=== PATIENT | female | born 2000 ===

== ENCOUNTER 2024-04-10 06:30 | Day surgery (SDC) | payer BC, SELFPAY ==
[2024-04-10] VITALS (7 sets, daily range): BP systolic 5–123; BP diastolic 56–79; BMI 25.3
[2024-04-10] MEDS: TYLENOL 1000 MG PO (12:10)
[2024-04-10] MEDS: NORMOSOL-R/PLASMALYTE-A 1000 IV (12:11)
[2024-04-10] MEDS: SUBLIMAZE 25 MCG IV (14:40)
[2024-04-10] MEDS: ZOFRAN 4 MG IV (15:13)
== END 2024-04-10 15:54 | disposition home or self-care (01) ==
LOC: SDS 06:30
PROVIDERS: ATTENDING PHYSICIAN Otolaryngology
DX: Q89.2 Congenital malformations of other endocrine glands (principal)
CPT/HCPCS: 60280; 88305; 88311